=== PATIENT | male | born 1995 | race Two or more races ===

== ENCOUNTER 2016-05-12 21:42 | Emergency (ER) | payer BC ==
--- NOTE | 2016-05-12 21:56 | ER Document Report ---
ED Medical Screen (RME) - General Stated Complaint: PRODUCTIVE COUGH,HEADACHE Mode of Arrival: Ambulatory Information source: Patient Notes: 21 y/o M presents to ED c/o productive cough. Pt reports has had cough for approximately 1 month but worse over the last week. Reports associated substernal chest pain and son yesterday evening during coughing bouts. Denies fever, chest pain without cough, n/v. TRAVEL OUTSIDE OF THE [place] IN LAST 30 DAYS: No - Related Data Allergies/Adverse Reactions: No Known Allergies Allergy (Verified 05/12/16 21:53) Past Medical History Pulmonary Medical History: Reports: Hx Asthma - Immunizations Immunizations up to date: Yes Hx Diphtheria, Pertussis, Tetanus Vaccination: Yes Physical Exam - Vital signs Vitals: Temp Pulse Resp BP Pulse Ox 98.0 F 90 18 139/89 H 98 05/12/16 21:49 05/12/16 21:49 05/12/16 21:49 05/12/16 21:49 05/12/16 21:49 - General General appearance: Appears well, Alert In distress: None - Respiratory Respiratory status: No respiratory distress Course - Vital Signs Vital signs: Temp Pulse Resp BP Pulse Ox 98.0 F 90 18 139/89 H 98 05/12/16 21:49 05/12/16 21:49 05/12/16 21:49 05/12/16 21:49 05/12/16 21:49
--- NOTE | 2016-05-13 01:00 | ER Document Report ---
ED General - General Chief Complaint: Cough Stated Complaint: PRODUCTIVE COUGH,HEADACHE Mode of Arrival: Ambulatory Notes: Patient is 21-year-old male presents with complaints of cough and congestion for 2 months. He does not smoke. No recent foreign travel. No fevers. No coughing up of blood. Says symptoms first started when he was diagnosed with influenza urgent care 2 months ago. Says the symptoms have been come and go. Patient says at times he doesn't itchy and watery eyes. TRAVEL OUTSIDE OF THE [place] IN LAST 30 DAYS: No - Related Data Allergies/Adverse Reactions: No Known Allergies Allergy (Verified 05/12/16 21:53) Past Medical History - General Information source: Patient - Social History Smoking Status: Never Smoker Chew tobacco use (# tins/day): No Frequency of alcohol use: None Drug Abuse: None Family History: CVA, DM, Hypertension, Other - Renal failure, kidney stones Patient has suicidal ideation: No Patient has homicidal ideation: No Pulmonary Medical History: Reports: Hx Asthma Renal/ Medical History: Denies: Hx Peritoneal Dialysis - Immunizations Immunizations up to date: Yes Hx Diphtheria, Pertussis, Tetanus Vaccination: Yes Review of Systems - Review of Systems Notes: My Normal Review Basic REVIEW OF SYSTEMS: CONSTITUTIONAL : Denies fever, chills, or sweats. Denies recent illness. EENT: Nasal congestion CARDIOVASCULAR: Denies chest pain. RESPIRATORY: Cough GASTROINTESTINAL: Denies abdominal pain. Denies nausea, vomiting, or diarrhea. Denies constipation. Last BM: GENITOURINARY: Denies difficulty urinating, painful urination, burning, frequency, or blood in urine. MUSCULOSKELETAL: Denies neck or back pain or joint pain or swelling. SKIN: Denies rash or skin lesions. NEUROLOGICAL: Denies altered mental status or loss of consciousness. Denies headache. Denies weakness or paralysis or loss of use of either side. Denies problems with gait or speech. Denies sensory or motor loss. ALL OTHER SYSTEMS REVIEWED AND NEGATIVE. Physical Exam - Vital signs Vitals: Temp Pulse Resp BP Pulse Ox 98.0 F 90 18 139/89 H 98 05/12/16 21:49 05/12/16 21:49 05/12/16 21:49 05/12/16 21:49 05/12/16 21:49 - Notes Notes: General Appearance: Well nourished, alert, cooperative, no acute distress, no obvious discomfort. Well-appearing. Vitals: reviewed, See vital signs table. Head: no swelling or tenderness to the head Eyes: PERRL, EOMI, Conjuctiva clear Mouth: No decreasd moisture Throat: No tonsillar inflammation, No airway obstruction, No lymphadenopathy Nose: No discolored nasal discharge from nose. Neck: Supple, no neck tenderness, No thyromegaly Lungs: No wheezing, No rales, No rhonci, No accessory muscle use, good air exchange bilaterally. Heart: Normal rate, Regular rythm, No murmur, no rub Skin: warm, dry, appropriate color, no rash Neuro: speech clear, oriented x 3, normal affect, responds appropriately to questions. Course - Vital Signs Vital signs: Temp Pulse Resp BP Pulse Ox 98.0 F 90 18 139/89 H 98 05/12/16 21:49 05/12/16 21:49 05/12/16 21:49 05/12/16 21:49 05/12/16 21:49 - Transfer of Care Notes: 05/13/16 01:06 Patient may have acquired some recurrent cold viruses; however, I suspect a lot of his symptoms are related to possible allergic rhinitis. I suspect is because patient does develop some itchy watery eyes and the symptoms have been ongoing for 2 months. I'm encouraged him to try Niya-D. I did read on the name of this discharge instructions. I informed him that this is not working and he should follow-up for reevaluation 1 week. Encouraged return to ER immediately if has difficulty breathing, fevers, or feels that his symptoms are worsening. Patient agrees with plan and will be discharged home. Dictation of this chart was performed using voice recognition software; therefore, there may be some unintended grammatical errors. Discharge - Discharge Clinical Impression: Cough URI (upper respiratory infection) Qualifiers: URI type: unspecified URI Qualified Code(s): J06.9 - Acute upper respiratory infection, unspecified Condition: Good Disposition: HOME, SELF-CARE Additional Instructions: Please take [id number] Niya-D. Please take this for the next 7 days. See if this does help your symptoms. Please return to ER immediately if you have difficulty breathing, worsening of her symptoms, or fevers. Please follow- up with the doctor in one week for reevaluation. Forms: Return to Work
[2016-05-13 02:17] VITALS: BP 130/81
== END 2016-05-13 02:14 | disposition home or self-care (01) ==
LOC: ER 21:42
DX: J06.9 Acute upper respiratory infection, unspecified (principal); R05 Cough; J45.909 Unspecified asthma, uncomplicated; R09.81 Nasal congestion
CPT/HCPCS: 71020; 99283